=== PATIENT | male | born 1955 | race Caucasian/White ===

== ENCOUNTER → 2020-12-17 | Outpatient (CLI) | payer OTHER | LOC: LABNPT 08:29 | DX: Z20.822 Contact with and (suspected) exposure to COVID-19 (principal) | CPT/HCPCS: 87635 ==

== ENCOUNTER 2020-12-21 20:37 | Outpatient (CLI) | payer OTHER | END 2020-12-22 06:30 | disposition home or self-care (01) | LOC: SLEEP 20:37 | DX: G47.33 Obstructive sleep apnea (adult) (pediatric) (principal); G47.31 Primary central sleep apnea | CPT/HCPCS: 95811 ==

== ENCOUNTER → 2021-01-28 | Outpatient (CLI) | payer OTHER ==
--- NOTE | 2021-01-28 08:26 | Diagnostic Imaging Report ---
INDICATION: Bloody ejaculation. TECHNIQUE: Multiple contiguous axial images were obtained through the abdomen and pelvis without the use of intravenous contrast. Auto Exposure Controls were utilized during the CT exam to meet ALARA standards for radiation dose reduction. There is no prior CT for comparison. FINDINGS: The visualized portions of the lung bases are clear. There were no pleural fluid collections. There is no free intraperitoneal air. The liver and gallbladder appear normal. The spleen, adrenals, and pancreas are normal. Kidneys bilaterally appear unremarkable without contrast. There is no retroperitoneal mass or adenopathy. There is no ascites or abnormal fluid collection. Visualized bowel loops show few uncomplicated sigmoid diverticuli but otherwise normal. There is no pelvic mass or lymphadenopathy. The prostate gland appears symmetric with a few punctate calcifications. Urinary bladder is grossly unremarkable. IMPRESSION: Essentially unremarkable CT of the abdomen and pelvis without contrast. Dictated by: Dictated on workstation # [id number]
== END ==
LOC: RAD 07:45
PROVIDERS: ATTEND Urology
DX: N40.0 Benign prostatic hyperplasia without lower urinary tract symptoms (principal); N53.19 Other ejaculatory dysfunction
CPT/HCPCS: 74176

== ENCOUNTER → 2022-12-18 | Outpatient (CLI) | payer OTHER ==
--- NOTE | 2022-12-18 12:36 | Diagnostic Imaging Report ---
INDICATION: Neck pain. COMPARISON: None FINDINGS: Flexion and extension radiographic views of the cervical spine were obtained in the lateral projection. With extension, there is persistent mild reversal of normal lordotic curvature of the cervical spine. There is, however no abnormal translation. There is no significant anterolisthesis or retrolisthesis. There is no evidence of jumped facets. Vertebral body heights are maintained. There is no acute fracture. Moderate multilevel degenerative changes are noted and consists of intervertebral disc height loss with prominent anterior endplate osteophyte formations. These changes are greatest at the C4-C5 through C6-C7 levels. Surrounding soft tissue structures are unremarkable. No unexpected radiopaque foreign bodies are seen. IMPRESSION: 1. Moderate degenerative changes of the cervical spine as above. Dictated by: Dictated on workstation # [id number]
== END ==
LOC: RAD 08:19
PROVIDERS: ATTEND Family Medicine
DX: M50.321 Other cervical disc degeneration at C4-C5 level (principal); M50.322 Other cervical disc degeneration at C5-C6 level; M50.323 Other cervical disc degeneration at C6-C7 level; M25.78 Osteophyte, vertebrae; D33.4 Benign neoplasm of spinal cord
CPT/HCPCS: 72040